=== PATIENT | male | born 1965 | race Caucasian/White ===

== ENCOUNTER → 2016-07-15 | Outpatient (CLI) | payer OTHER ==
--- NOTE | 2016-07-16 08:14 | MRI ---
EXAM DESCRIPTION: MR ABDOMEN WITHOUT IV CONTRAST CLINICAL HISTORY: 50 y/o ,M, hepatic cirrhosis and fibrosis, nausea, vomiting and abdominal pain COMPARISON: December 13, 2015 TECHNIQUE: Multi planar, multi sequence imaging of the abdomen was performed. Costume Designer static images were saved to the patient's medical record. FINDINGS: The liver is enlarged measuring 19.2 cm in the craniocaudal dimension. In and out of phase imaging reveals no evidence of fatty infiltration. The surface of the liver is nodular. There is no intrahepatic biliary duct dilatation. The common bowel duct measures 6 mm in diameter. The patient states that he is status post cholecystectomy. There is a lobular cystic focus noted within the region of the gallbladder fossa. This measures approximately 4.4 x 2.4 cm. The spleen is large measuring 18 cm in diameter. Bilateral adrenal glands, and the pancreas are unremarkable. Renal cysts noted bilaterally. No lymphadenopathy on today's study. IMPRESSION: Today's exam demonstrates hepatosplenomegaly along with a subtle nodular liver surface. These findings can be seen in setting of cirrhosis with portal hypertension resulting in splenomegaly. There is a serpentine cystic fluid collection noted within the region of the gallbladder fossa. This may be compatible with a loculated biloma or cystic duct remnant. HIDA scan is suggested. Less likely would be a cystic neoplasm such as a biliary cystadenoma. Electronically signed by: Alex Teague MD 07/16/2016 08:12
== END ==
LOC: MRI 08:57
PROVIDERS: ATTEND Internal Medicine Gastroenterology
DX: K74.0 Hepatic fibrosis (principal); R16.2 Hepatomegaly with splenomegaly, not elsewhere classified

== ENCOUNTER → 2016-07-31 | Outpatient (CLI) | payer OTHER, SELFPAY ==
--- NOTE | 2016-08-02 10:57 | MRI ---
EXAM DESCRIPTION: MR ABDOMEN WITHOUT THEN WITH IV CONTRAST CLINICAL HISTORY: ABDOMINAL PAIN cirrhosis and hepatic fibrosis. Cystic structure in the gallbladder fossa. COMPARISON: July 15, 2016. TECHNIQUE: Multi sequence, multiplanar MR images of the abdomen were obtained with without IV gadolinium contrast. FINDINGS: Stable heterogeneous appearance and multinodular contour appearance of the liver compatible with known hepatic cirrhosis. Multiloculated fluid signal structure again seen within the gallbladder fossa. This is again favored to represent either a loculated biloma or cystic duct remnant. Alternatively, hepatic cysts could also have this appearance. No regions of pronounced T2 signal hypointensity to suggest fibrosis. Minimal perihepatic and perisplenic fluid is noted. No fluid collections. Stable splenomegaly with findings consistent with portal hypertension. Multiple stable a bilateral simple renal cysts are again noted. Pancreas, biliary tree, and adrenal glands are otherwise nonacute and stable. Visualized bowel is unremarkable. IMPRESSION: 1. Stable findings of cirrhosis with hepatosplenomegaly and findings consistent with portal hypertension. No arterial enhancing hepatic mass lesion. 2. Stable fluid collection seen within the gallbladder fossa as above. No enhancing nodule or septated components. 3. Stable renal cysts. Electronically signed by: Deshaun Tristan 08/02/2016 10:56
== END | disposition home or self-care (01) ==
LOC: MRI 08:13
DX: R10.9 Unspecified abdominal pain (principal); R16.2 Hepatomegaly with splenomegaly, not elsewhere classified; K74.69 Other cirrhosis of liver

== ENCOUNTER → 2016-08-27 | Outpatient (CLI) | payer OTHER | END | disposition home or self-care (01) | LOC: LAB.O 11:46 | PROVIDERS: ATTEND Internal Medicine Gastroenterology | DX: K74.0 Hepatic fibrosis (principal); K72.91 Hepatic failure, unspecified with coma; K76.9 Liver disease, unspecified ==

== ENCOUNTER → 2016-09-10 | Outpatient (CLI) | payer OTHER ==
--- NOTE | 2016-09-10 10:24 | US ---
EXAM DESCRIPTION: Abdomen,Complete CLINICAL HISTORY: 50 years Male, ABDOMINAL PAIN TECHNIQUE: Right upper quadrant ultrasound was performed utilizing grayscale and color Doppler imaging. Images were saved patient's medical record. FINDINGS: The abdominal aorta demonstrates minimal ectasia measuring 1.9 cm within its distal third segment. The pancreas is not visualized due to overlying bowel gas. The liver is echogenic and enlarged measuring 18 cm in diameter. Patient is status post cholecystectomy. There is a hypoechogenic focus noted within the gallbladder fossa resembling a gallbladder. This may represent a portion of the bowel. This is noted on the previous MRI from August 02, 2016. Portal vein demonstrates normal directional flow. The common bile duct is unremarkable measuring 4 mm in diameter. The right kidney is unremarkable. The spleen is enlarged measuring 15.7 cm in diameter. The left kidney is unremarkable. IMPRESSION: Today's exam demonstrates hepatosplenomegaly. The liver is echogenic which can be seen in setting of hepatocellular disease or fatty infiltration. Ectasia of the infrarenal abdominal aorta noted. It measures roughly 1.9 cm in diameter. Fluid again noted within the gallbladder fossa. This is noted on the previous MRI from 08/02/2016 Electronically signed by: Alex Teague MD 09/10/2016 10:23 AM CDT
== END | disposition home or self-care (01) ==
LOC: US 08:48
DX: K74.69 Other cirrhosis of liver (principal)

== ENCOUNTER → 2016-09-22 | Outpatient (CLI) | payer OTHER | END | disposition home or self-care (01) | LOC: LAB.O 08:14 | DX: K74.69 Other cirrhosis of liver (principal) ==

== ENCOUNTER → 2016-10-23 | Outpatient (CLI) | payer OTHER | END | disposition home or self-care (01) | LOC: GMAM 12:17 | PROVIDERS: ATTEND Family Medicine | DX: D50.8 Other iron deficiency anemias (principal) ==

== ENCOUNTER → 2016-11-04 | Outpatient (CLI) | payer OTHER | END | disposition home or self-care (01) | LOC: GMAM 10:30 | PROVIDERS: ATTEND Family Medicine | DX: R29.898 Other symptoms and signs involving the musculoskeletal system (principal) ==

== ENCOUNTER → 2016-11-26 | Outpatient (CLI) | payer OTHER | END | disposition home or self-care (01) | LOC: GMAM 12:11 | PROVIDERS: ATTEND Family Medicine | DX: R29.898 Other symptoms and signs involving the musculoskeletal system (principal); K70.0 Alcoholic fatty liver; R30.0 Dysuria; R50.9 Fever, unspecified; N41.0 Acute prostatitis ==

== ENCOUNTER → 2016-12-03 | Outpatient (CLI) | payer OTHER | END | disposition home or self-care (01) | LOC: GMAM 14:38 | PROVIDERS: ATTEND Family Medicine | DX: R31.21 Asymptomatic microscopic hematuria (principal) ==

== ENCOUNTER → 2017-03-24 | Outpatient (CLI) | payer OTHER | LOC: GMAM 10:39 | PROVIDERS: ATTEND Family Medicine | DX: K74.69 Other cirrhosis of liver (principal) ==

== ENCOUNTER → 2017-04-08 | Outpatient (CLI) | payer OTHER ==
--- NOTE | 2017-04-08 12:04 | US ---
EXAM DESCRIPTION: Abdomen,Complete CLINICAL HISTORY: 51 years, Male, CIRRHOSIS COMPARISON: Comparison study September 10 FINDINGS: Proximal abdominal aorta not well seen. Midabdominal aorta 2.1 cm low abdominal 1.8 cm. Visualized IVC unremarkable. Right kidney 12.3 cm. Left kidney 10.9 cm. No hydronephrosis. Pancreas not well seen. Gallbladder removed. Common bile duct 5 mm. Intrahepatic ducts not dilated. Liver enlarged and echogenic measuring 16.6 cm. Enlarged spleen also about 16.6 cm. IMPRESSION: Hepatosplenomegaly similar to September 10. Coarse hepatic echotexture compatible chronic liver disease or fatty infiltration. Prior cholecystectomy. No biliary distention. Electronically signed by: Cornel Anaya MD 04/08/2017 12:03 PM CDT
== END | disposition home or self-care (01) ==
LOC: US 08:47
DX: R16.2 Hepatomegaly with splenomegaly, not elsewhere classified (principal); K74.69 Other cirrhosis of liver; R60.0 Localized edema; I85.10 Secondary esophageal varices without bleeding

== ENCOUNTER → 2017-07-29 | Outpatient (CLI) | payer BC | LOC: LAB.O 08:12 | DX: K74.69 Other cirrhosis of liver (principal); R60.0 Localized edema; I85.10 Secondary esophageal varices without bleeding ==

== ENCOUNTER → 2017-08-17 | Outpatient (CLI) | payer BC ==
--- NOTE | 2017-08-17 15:23 | US ---
EXAM DESCRIPTION: Abdomen,Complete CLINICAL HISTORY: OTHER CIRRHOSIS OF LIVER COMPARISON: None Available. TECHNIQUE: Complete abdominal ultrasound FINDINGS: Visualized portions of the pancreas are unremarkable. No peripancreatic fluid. Bowel gas obscures some areas. No aortic aneurysm. Arteriosclerotic narrowing of the mid abdominal aorta. Normal appearance of the inferior vena cava. Liver parenchyma is hyperechoic consistent with fatty infiltration or fibrofatty changes of cirrhosis. No liver mass or intrahepatic bile duct dilatation. No liver surface irregularity. Hepatic veins are not well seen. Portal vein diameter of 1.5 cm is large consistent with portal hypertension. Liver length of 17 cm is near the upper limits of normal. Gallbladder is surgically absent. Common bile duct is normal in caliber measuring 4.5 mm. No intrahepatic bile duct dilatation. The right kidney measures 11.7 cm in length. Mildly increased renal cortical echogenicity. The renal cortical thickness appears normal. No right renal mass, shadowing stone or cyst. There is no hydronephrosis. Spleen is enlarged measuring 15.6 cm in length. No focal splenic lesion. The left kidney measures 12.5 cm in length. Mildly increased renal cortical echogenicity. The renal cortical thickness appears normal. No left renal mass, shadowing stone or cyst. There is no hydronephrosis. IMPRESSION: Hyperechoic liver consistent with hepatic steatosis or fibrofatty changes of cirrhosis. Splenomegaly. Arteriosclerotic narrowing of the abdominal aorta. Electronically signed by: Demond Lyons MD 08/17/2017 3:22 PM [employer]
== END ==
LOC: US 07:53
DX: K74.69 Other cirrhosis of liver (principal); I85.10 Secondary esophageal varices without bleeding; R60.0 Localized edema

== ENCOUNTER → 2017-10-18 | Outpatient (CLI) | payer BC | LOC: GMAM 08:38 | PROVIDERS: ATTEND Family Medicine | DX: K70.0 Alcoholic fatty liver (principal); D64.9 Anemia, unspecified; M10.9 Gout, unspecified ==

== ENCOUNTER → 2018-01-31 | Outpatient (CLI) | payer BC, OTHER ==
--- NOTE | 2018-01-31 13:57 | CT ---
EXAM DESCRIPTION: Abdomen/Pelvis w/wo Contrast CLINICAL HISTORY: 52 years Male, OTHER CIRRHOSIS OF LIVER COMPARISON: MRI abdomen dated July 31, 2016. TECHNIQUE: Contiguous 3 mm axial images were obtained from the lung bases to the level of the proximal femora with and without the administration of intravenous and oral contrast. Sagittal and coronal reconstructions were reviewed. FINDINGS: THORAX: The imaged lower thorax demonstrates no gross abnormality. No evidence of pleural or pericardial effusion. LIVER: The liver appears grossly unremarkable with no focal mass lesion or intrahepatic ductal dilatation. Again noted are persistent the small low-density lesions in the dome of the right lobe which are too small to characterize, however appears stable since prior MRI abdomen from July 15, 2016. GALLBLADDER: The gallbladder is surgically absent. PANCREAS: Appears normal with no cystic or solid lesions. SPLEEN: Splenomegaly again noted measuring 17.5 x 9.8 x 2.8 cm. ADRENAL GLANDS: Normal with no nodules or masses. KIDNEYS: Both kidneys enhance symmetrically with no hydronephrosis or nephrolithiasis or perinephric fluid collections. Again noted are low-density lesions in the interpolar region of right kidney and posterior aspect of upper pole of left kidney which appears stable in size in comparison to prior MRI and most likely represents simple cysts. The visualized ureters appear grossly unremarkable. STOMACH: The stomach is minimally distended limiting detail evaluation. SMALL BOWEL: The small bowel loops demonstrate variable degrees of distention with no abnormal dilatation or other signs to suggest bowel obstruction. LARGE BOWEL: The colon is adequately distended with no gross abnormality. The appendix is well-visualized and appears normal No evidence of free intraperitoneal air or fluid. RETROPERITONEUM: The abdominal aorta is nonaneurysmal with no significant atherosclerosis. The inferior vena cava is normal in size and caliber. No abnormally enlarged retroperitoneal lymph nodes are identified. URINARY BLADDER:The urinary bladder is moderately distended with no gross abnormality. The prostrate and seminal vesicles appear grossly unremarkable. ADDITIONAL FINDINGS: None. BONES: Multilevel degenerative changes of the thoracolumbar spine noted with continuous flowing anterior disc osteophytes in the lower thoracic vertebra consistent with DISH type changes. IMPRESSION: 1. No acute intra-abdominal process. 2. Persistent splenomegaly. 3. The gallbladder is surgically absent. 4. Stable low-density lesions in the dome of right lobe of liver are too small to characterize. No significant interval change since prior MRI abdomen from August 17, 2016. This exam was performed according to our departmental dose-optimization program, which includes automated exposure control, adjustment of the mA and/or kV according to patient size and/or use of iterative reconstruction technique. Electronically signed by: Gui Garcia MD 01/31/2018 1:56 PM CDT
== END ==
LOC: CT 08:02
DX: R60.0 Localized edema (principal); K74.69 Other cirrhosis of liver; I85.10 Secondary esophageal varices without bleeding; R16.1 Splenomegaly, not elsewhere classified; Z90.49 Acquired absence of other specified parts of digestive tract

== ENCOUNTER → 2018-01-31 | Outpatient (CLI) | payer BC | LOC: LAB 08:17 | DX: K74.69 Other cirrhosis of liver (principal); I85.10 Secondary esophageal varices without bleeding; R60.0 Localized edema ==

== ENCOUNTER → 2018-05-26 | Outpatient (CLI) | payer BC | LOC: LAB.O 07:40 | DX: I85.10 Secondary esophageal varices without bleeding (principal); K74.69 Other cirrhosis of liver; R60.0 Localized edema ==

== ENCOUNTER → 2018-07-28 | Outpatient (CLI) | payer BC ==
--- NOTE | 2018-07-28 10:37 | MRI ---
EXAM DESCRIPTION: Abdomen w/wo Contrast CLINICAL HISTORY: 52 years Male, CIRRHOSIS OF LIVER COMPARISON: CT abdomen and pelvis January 31, 2018, abdominal sonogram complete August 17, 2017, previous MRI abdomen July 31, 2016 TECHNIQUE: Hepatic MRI is performed according to our usual technique including multisequence axial imaging. For the postcontrast images, usual adult dose of gadolinium contrast was administered. FINDINGS: Coronal T2 images show inhomogeneity of the liver consistent with cirrhosis. There is mild liver surface irregularity. Few tiny punctate high signal intensity foci are consistent with small cysts. No dominant mass to suggest complicating malignancy. Cyst in the gallbladder fossa is smaller than on previous MRI abdomen. Liver appears unchanged compared to CT abdomen January 31, 2018. Prominent common hepatic and common bile ducts are noted. Compared to previous similar MRI sequence July 31, 2016, findings are essentially unchanged. No enlarging liver lesion is identified. Axial T2 images show multiple small renal cysts. Cystic area in the liver hilum may be exophytic hepatic cyst or mucocele of the cystic duct remnant. No definite low signal intensity foci in the common duct to suggest stones. No pancreatic lesion or pancreatic ductal dilatation. Spleen is prominent. No upper abdominal mass or adenopathy. Prominent vessels in the liver consistent with hepatic arterialization from cirrhosis. Axial gradient echo T1 dual phase imaging is performed. The liver parenchyma is inhomogeneous in signal intensity. In phase and opposed phase signal intensity is compared and there is mild increased signal intensity on the opposed phase images which can be seen with increased iron content of the liver. Normal appearance of the adrenal glands. Coronal images show enlarged spleen 13.8 cm in craniocaudal dimension. Diffusion-weighted images are negative for focal restriction. No mass in the liver has developed since earlier studies and the hepatic findings remain benign. Pre and postcontrast axial T1 thrive images show normal arterial enhancement. Normal enhancement of the portal vein and hepatic veins. Mottled enhancement of the spleen and cortical enhancement of the kidneys is normal. Tiny nonenhancing lesions in the right lobe of the liver and medial segment left lobe appear benign and unchanged consistent with small cysts. No enhancing hepatic lesion to suggest complicating neoplasm. IMPRESSION: Cirrhotic appearance of the liver with splenomegaly. No free fluid to suggest ascites. Tiny lesions in the liver are stable probably cysts. Bilateral renal cysts. Electronically signed by: Demond Lyons MD 07/28/2018 10:34 AM [facility]
== END ==
LOC: MRI 08:00
DX: K74.69 Other cirrhosis of liver (principal); R60.0 Localized edema; I85.10 Secondary esophageal varices without bleeding; R16.1 Splenomegaly, not elsewhere classified

== ENCOUNTER → 2018-08-15 | Outpatient (CLI) | payer BC | LOC: GMAM 10:42 | PROVIDERS: ATTEND Family Medicine | DX: M10.9 Gout, unspecified (principal); Z12.5 Encounter for screening for malignant neoplasm of prostate ==

== ENCOUNTER → 2018-08-18 | Outpatient (CLI) | payer BC | LOC: GMAM 14:20 | PROVIDERS: ATTEND Family Medicine | DX: K70.30 Alcoholic cirrhosis of liver without ascites (principal) ==

== ENCOUNTER → 2018-09-12 | Outpatient (CLI) | payer BC | LOC: GMAM 10:40 | PROVIDERS: ATTEND Family Medicine | DX: K74.69 Other cirrhosis of liver (principal) ==

== ENCOUNTER → 2019-01-11 | Outpatient (CLI) | payer BC ==
--- NOTE | 2019-01-11 10:27 | CT ---
PROVIDED CLINICAL HISTORY/REASON FOR EXAM: OTHER CIRRHOSIS OF LIVER STUDY TYPE/TECHNIQUE: CT ABDOMEN WITHOUT THEN WITH IV CONTRAST This exam was performed according to our departmental dose-optimization program, which includes automated exposure control, adjustment of the mA and/or kV according to patient size and/or use of iterative reconstruction technique. COMPARISON: July 28, 2018 FINDINGS: Visualized lung bases are grossly unremarkable. Liver: Cirrhotic liver morphology. Redemonstrated tiny hypoattenuating liver lesions which are most likely cysts. No suspicious enhancing liver lesion identified. No biliary dilatation. The portal vein is patent. Cholecystectomy. The spleen measures 14 cm. The pancreas and adrenal glands are unremarkable. Right renal cyst. No hydronephrosis. No urolithiasis. The visualized bowel is unremarkable. Normal caliber abdominal aorta. No urothelial lesion. No acute or suspicious osseous abnormality. Scattered degenerative changes present. IMPRESSION: Cirrhotic liver morphology with sequela of portal hypertension. No HCC. Electronically signed by: Rojas Piedra MD 01/11/2019 10:25 AM CDT
== END ==
LOC: CT 08:06
DX: K74.69 Other cirrhosis of liver (principal); R60.0 Localized edema

== ENCOUNTER → 2019-07-04 | Outpatient (CLI) | payer BC ==
--- NOTE | 2019-07-04 15:44 | MRI ---
EXAM DESCRIPTION: Lumbar Spine w/o Contrast : Magnetic Resonance Imaging. CLINICAL HISTORY: LUMBAR RADICULOPATHY COMPARISON: Lumbar radiographs June 2018. TECHNIQUE: Multiplanar, multiple standard sequences, non contrast MRI, lumbar spine.. Technically difficult study due to patient large body habitus. FINDINGS: L5-S1: The disc is well visualized on axial T2 series 501, image 3. Normal signal in the disc with minimal disc space loss. No significant bulging. Bilateral pedicle shortening. Degenerative hypertrophy of the posterior elements: Facet joints and posterior flavum ligaments. Moderate severe bilateral foraminal narrowing. L4-L5: Disc desiccation with posterior disc space loss. Posterior midline 4 mm disc bulge abutting the thecal sac and bilateral narrowing of the subarticular recesses. Degenerative hypertrophy of the posterior elements more left than right. Bilateral shortened pedicles. AP canal diameter 7.5 mm. Bilateral moderate foraminal narrowing, more left than right. L3-L4: Normal signal in the disc with disc space preserved. Bilateral shortened pedicles. Degenerative hypertrophy of the posterior elements. AP canal diameter 10 mm. Bilateral mild to moderate foraminal narrowing. L2-L3: Normal signal in the disc with disc space preserved. No posterior bulge. Bilateral pedicular shortening. Posterior elements with degenerative hypertrophy impressing on the posterior thecal sac. AP canal diameter 10 mm. Bilateral mild foraminal narrowing. Circumscribed hyperintense T1 and T2 hemangioma in the anterior T2 vertebral body abutting the implant. L1-L2: Anterior endplate hypertrophic changes. Remainder of the disc is unremarkable. Bilateral pedicle shortening. Mild degenerative hypertrophy of the posterior elements. Moderate canal narrowing. Bilateral mild foraminal narrowing. T12-L1: Anterior endplate ridging in the midline and to the right of midline. Desiccation in the anterior disc but the remainder of the disc space is preserved. Bilateral pedicle shortening. Degenerative hypertrophy in the posterior elements. Conus terminates at this level. T11-T12: Anterior disc desiccation and disc space loss. Superior and inferior endplate changes anteriorly. No posterior bulging with the cord abutting the posterior endplates. Bilateral pedicle shortening. Minimal posterior element degenerative hypertrophy. Mild canal narrowing. Bilateral foramina are patent. No significant scoliosis. Paravertebral soft tissues minimal paraspinal muscle atrophy.. Distal cord normal signal and caliber. Heterogeneous marrow signal in the remaining vertebral bodies and the posterior elements, on T1 and T2 sequences. Vertebral bodies are not compressed at any level. IMPRESSION: 1. Multiple levels of degenerative hypertrophy in the facet joints and posterior flavum ligaments unilaterally or bilaterally. Also multiple levels of significant foraminal narrowing. Multiple levels of canal narrowing related to bulging disc and multilevel bilaterally shortened pedicles. 2. Moderate central canal stenosis at L4-L5 which is multifactorial secondary to bulging disc versus small protruding disc as well as degenerative hypertrophy of the posterior elements. Bilateral narrowing of the subarticular recesses abutting the bilateral descending L5 nerves. 3. borderline mild central canal stenosis at L2-L3. Electronically signed by: Jameel Alvarez MD 07/04/2019 3:43 PM [facility]
== END ==
LOC: MRI 09:00
PROVIDERS: ATTEND Family Medicine
DX: M51.16 Intervertebral disc disorders with radiculopathy, lumbar region (principal); M51.36 Other intervertebral disc degeneration, lumbar region; M48.061 Spinal stenosis, lumbar region without neurogenic claudication; K74.69 Other cirrhosis of liver; R60.0 Localized edema; I85.10 Secondary esophageal varices without bleeding

== ENCOUNTER → 2019-12-05 | Outpatient (CLI) | payer BC ==
--- NOTE | 2019-12-06 12:52 | CT ---
EXAM DESCRIPTION: Abdomen w/wo Contrast: Computed Tomography. CLINICAL HISTORY: OTHER CIRRHOSIS OF LIVER COMPARISON: August 04 at outside imaging facility. . TECHNIQUE: Spiral-axial scans at 5 mm intervals, from the diaphragms through the upper pelvis, before and after 75 mL Optiray 320 nonionic IV contrast. Postcontrast scans performed for arterial and portal venous phase. Coronal and sagittal 2.0 mm reconstructions. 5 minute Delayed 5 mm scans, liver through the upper pelvis. No adverse reactions. DLP 2333 mGy-cm. This exam was performed according to our departmental CT dose-optimization program which includes automated exposure control, adjustment of the mA and/or kV according to patient size and/or use of iterative reconstruction technique; to reduce radiation dose to as low as reasonably achievable (ALARA). FINDINGS: Lung bases and pleura: Minimal pleural thickening in the left base. Liver: Margin of the liver is diffusely nodular. Long axis right lobe 11.7 cm. Homogeneous density and enhancement. Asymmetric increased size of the left hepatic lobe compared to the right. Nonenhancing subcentimeter nodule in the mid right liver at the level of the mendy hepatis is stable on axial series 5, image 18. 2 nodules in the mid coronal and posterior coronal plane of the dome of the right hemidiaphragm are also subcentimeter in size without enhancement and stable (5/14). Posterior subcapsular subcentimeter nodule at the dome on image 5/10, and second nodule similar size more anterior and medial are stable. Lateral nonenhancing nodule, not as well-defined in the right lobe (5/22) is stable. Stomach, adrenal glands, and spleen: AP diameter of the spleen is 16 cm mildly enlarged but stable. No focal lesions. Stomach and adrenal glands are negative. Pancreas/Gallbladder/Ducts: Surgical clips in the gallbladder fossa with no fluid. Mild dilation of the common bile duct also seen on the prior study. Pancreas is negative. Kidneys and Ureters: Stable cyst posterior right kidney and stable juxta cortical cyst. Stable posterior cortical cyst left kidney upper pole and also superior cortex of the upper pole on the left. Left kidney not completely visualized on the postcontrast images. Stable bilateral pararenal stranding. Otherwise negative. Mesentery: No free air or free fluid. No fatty stranding. Aorta: Normal caliber minimal atherosclerotic calcification. Small Bowel: Included segments not distended. Terminal Ileum/Cecum: Not included on the study. Colon: Included segments with minimal fecal burden. No air-fluid levels or significant distention. Spine: Spondylosis at multiple levels of the mid thoracic spine with exaggerated thoracic kyphosis. Abdominal Wall/Back Soft Tissues: Anterior deviation of the xiphoid process, otherwise negative. IMPRESSION: 1. Small liver with multi nodular capsule, decreased enhancement and fatty density, with enlarged left hepatic lobe consistent with cirrhosis. Multiple small nonenhancing regions are stable since the prior study and most likely cysts. No nonenhancing or hyperenhancing mass. No further imaging follow-up recommended. 2. Bilateral renal cysts. Mild splenomegaly stable. Electronically signed by: Jameel Alvarez MD 12/06/2019 12:50 PM CDT
== END ==
LOC: CT 07:53
PROVIDERS: ATTEND Internal Medicine Gastroenterology
DX: Z01.812 Encounter for preprocedural laboratory examination (principal); K74.69 Other cirrhosis of liver; K76.9 Liver disease, unspecified; N28.1 Cyst of kidney, acquired; R16.1 Splenomegaly, not elsewhere classified

== ENCOUNTER → 2020-04-19 | Outpatient (CLI) | payer BC | LOC: LAB.O 08:36 | PROVIDERS: ATTEND Family Medicine | DX: R74.8 Abnormal levels of other serum enzymes (principal); Z12.5 Encounter for screening for malignant neoplasm of prostate; M10.9 Gout, unspecified; I85.10 Secondary esophageal varices without bleeding; K74.69 Other cirrhosis of liver; R60.0 Localized edema ==

== ENCOUNTER → 2020-07-25 | Outpatient (CLI) | payer BC | LOC: LAB.O 08:21 | PROVIDERS: ATTEND Internal Medicine Gastroenterology | DX: K74.69 Other cirrhosis of liver (principal) ==